=== PATIENT | male | born 1995 | race Caucasian/White ===

== ENCOUNTER 2016-07-23 10:10 | Emergency (ER) | payer MEDICAID ==
--- NOTE | 2016-07-23 10:31 | ED Physician Chart ---
Chief Complaint/HPI - Patient Information Date Seen:: 07/23/16 Time Seen:: 10:15 Chief Complaint:: N/V/D x 4 hrs History of Present Illness:: Patient previously healthy woke this morning at 6 AM with nausea, and proceeded to have 10 episodes of vomiting after attempting to drink liquids, and 4 episodes of watery diarrhea without blood. The patient has mild midepigastric abdominal pain, which is intermittent, dull, and nonradiating in nature. The patient denies any antecedent history of foreign travel, unusual food or water sources, or ill contacts. The patient takes no medications and denies any new [id number] preparations. Allergies:: Allergies Allergy/AdvReac Type Severity Reaction Status Date / Time No Known Allergies Allergy Verified 07/23/16 10:17 Historian:: Patient Review:: Nurse's Note Reviewed Review of Systems - Review of Systems General/Constitutional: Other (all other review of systems is unremarkable except for that in the chief complaint and history of present illness) Past Medical History - Past Medical History Obtainable: Yes Past Medical History: No significant medical hx Family History: None Social History: No Drug Use, Single, Lives With Parents, Employed Surgical History: None Psychiatricy History: None Medication: None Family Medical History - Family Member Father Ethnicity: Living Status: Still Living Other Medical History: No medical problems Physical Exam - Physical Examination General/Constitutional: Awake, Well-developed, well-nourished, Alert, GCS 15, Non-toxic appearing, Ambulatory (physical exam: In general the patient is a 21- year-old male lying quietly on the gurney in mild distress secondary to 1/10 midepigastric pain. Initial vital signs were remarkable for tachycardia at the pulse is 104 my exam with excellent skin vital signs and moist mucous membranes. HEENT exam is unremarkable for unusual smells, and the neck is supple with full range of motion. Chest and cardiovascular exams are unremarkable except for the aforementioned mild tachycardia. Evaluation of the back is without abnormality or CVAT. The abdomen is soft, slightly distended, nontender except for the mid epigastrium to deep palpation, there is no rebound guarding or McBurney's point tenderness, nor is there referred pain with deep palpation. There are no hernias and the patient is able to sit up without change in pain. Emanation of the extremities is unremarkable.) Assessment - Assessment General Assessment: Medical decision making: There does not appear to be any catastrophic medical condition after history and physical exam obtained. Appendicitis must always be entertained as a diagnosis in early presentation of nausea vomiting and abdominal pain and this has been explained to the family. Serial examination over the next 1-2 days as well as nothing by mouth status unless patient improves has been explained as well. ED Septic Shock - . Is Septic Shock (SBP<90, OR Lactate>4 mmol\L) present?: No Reassessment (Disposition) - Reassessment Reassessment Condition:: Unchanged - Diagnosis Diagnosis:: Nausea, vomiting, diarrhea. #2 mild abdominal pain. - Aftercare/Follow up Instructions Aftercare/Follow-Up Instructions:: Refer to Discharge Instructions, Counseled pt & family regarding lab results/diagnosis & need follow up - Patient Disposition Discharge/Transfer:: Home ED Discharge Plan - Patient Disposition Admit/Discharge/Transfer: PT DISCHARGED HOME Condition at Disposition: Stable
== END 2016-07-23 11:09 | disposition home or self-care (01) ==
LOC: ER 10:10
DX: R19.7 Diarrhea, unspecified (principal); R11.2 Nausea with vomiting, unspecified; R10.9 Unspecified abdominal pain
CPT/HCPCS: Z7502